=== PATIENT | female | born 1955 | race Caucasian/White ===

== ENCOUNTER → 2020-07-31 | Day surgery (SDC) | payer MEDICARE ==
[~2020-07-31] MED LIST: FENTANYL CITRATE/PF 100MCG/2 ML INJ ONE; FLUOXETINE HCL10 MG PO; GABAPENTIN100 MG PO; MIDAZOLAM HCL 2 MG/2 ML VIAL ONE; OMEPRAZOLE40 MG PO; OR PHACO EYE KIT ONE; PREOP PHACO EYE KIT ONE; SOTALOL80 MG PO
[2020-07-31 13:30] VITALS: BP 121/76
== END | disposition home or self-care (01) ==
LOC: OR 10:01 → EDBD 14:30
PROVIDERS: ATTEND Ophthalmology
DX: H25.12 Age-related nuclear cataract, left eye (principal); I48.3 Typical atrial flutter; K21.9 Gastro-esophageal reflux disease without esophagitis; G58.8 Other specified mononeuropathies; F41.1 Generalized anxiety disorder; F32.9 Major depressive disorder, single episode, unspecified; Z88.6 Allergy status to analgesic agent; Z91.041 Radiographic dye allergy status; Z01.812 Encounter for preprocedural laboratory examination; Z11.59 Encounter for screening for other viral diseases; Z68.31 Body mass index [BMI] 31.0-31.9, adult; Z87.891 Personal history of nicotine dependence
CPT/HCPCS: 66984; U0002; J2250; J3010; V2632

== ENCOUNTER → 2020-08-14 | Day surgery (SDC) | payer MEDICARE ==
[2020-08-14 15:25] VITALS: BP 130/74
== END | disposition home or self-care (01) ==
LOC: OR 11:49
PROVIDERS: ATTEND Ophthalmology
DX: H25.11 Age-related nuclear cataract, right eye (principal); I10 Essential (primary) hypertension; I49.8 Other specified cardiac arrhythmias; F32.9 Major depressive disorder, single episode, unspecified; Z88.0 Allergy status to penicillin; Z88.6 Allergy status to analgesic agent; Z91.041 Radiographic dye allergy status; Z01.812 Encounter for preprocedural laboratory examination; Z20.828 Contact with and (suspected) exposure to other viral communicable diseases; Z87.891 Personal history of nicotine dependence
CPT/HCPCS: 66984; U0002; V2632; J2250; J3010